=== PATIENT | male | born 1995 | race Two or more races ===

== ENCOUNTER 2023-01-29 23:16 | Emergency (ER) | payer SELFPAY | END 2023-01-30 01:54 | disposition left against medical advice (07) | LOC: CSHERS 23:16 | DX: Z53.21 Procedure and treatment not carried out due to patient leaving prior to being seen by health care provider (principal) ==

== ENCOUNTER 2023-01-30 14:19 | Emergency (ER) | payer SELFPAY ==
[2023-01-30] MEDS ORDERED: AMOXicillin 250 MG CAP PO SCH (18:00)
== END 2023-01-30 17:35 | disposition home or self-care (01) ==
LOC: CSHERS 14:19
DX: K04.7 Periapical abscess without sinus (principal); F17.290 Nicotine dependence, other tobacco product, uncomplicated
CPT/HCPCS: 99282